=== PATIENT | female | born 1970 | race Caucasian/White ===

== ENCOUNTER 2022-08-18 15:58 | Outpatient (CLI) | payer BC, SELFPAY ==
--- NOTE | ~2022-08-18 | XR_ITS ---
XR_[id number]_CR DATE: 08/18/2022 16:35 INDICATION: Acute right neck pain for several days TECHNIQUE: AP, open-mouth, lateral and swimmer views COMPARISON: None FINDINGS: There is a reversal cervical curvature. There is dextroscoliosis of the cervical spine. C1 and C2 are normally aligned and the odontoid process is intact. There is mild anterolisthesis at C3-4 and C4-5. There is mild degenerative disc disease at C4-5, moderate degenerative disease at C5-C6 and severe de generative disc disease at C6-7. Uncovertebral joint spurring is noted in the mid and lower cervical spine. No fracture or dislocation or locked facet or prevertebral soft tissue swelling is detected. IMPRESSION: Levoscoliosis and reversal cervical curvature Mild anterolisthesis at C3-4 and C4-5 Multilevel degenerative disc disease of mid and lower cervical spine, greatest at C6-7 Reviewed, dictated and finalized at [facility]. Reviewed, dictated and finalized at [facility].
== END 2022-08-18 15:59 | disposition home or self-care (01) ==
PROVIDERS: PCP Family Medicine; Visit Provider Family Medicine
DX: M54.12 Radiculopathy, cervical region (principal); M41.82 Other forms of scoliosis, cervical region; M53.82 Other specified dorsopathies, cervical region; M43.02 Spondylolysis, cervical region; M50.323 Other cervical disc degeneration at C6-C7 level
CPT/HCPCS: 72040

== ENCOUNTER 2023-11-11 13:59 | Outpatient (CLI) | payer BC, SELFPAY ==
--- NOTE | ~2023-11-11 | MM_ITS ---
EXAMINATION: MM screening willian BI w tyrell HISTORY: Screening TECHNIQUE: Craniocaudal and mediolateral oblique 3-D tomosynthesis images were obtained and synthetic 2-D images were generated. CAD analysis was submitted and interpreted. COMPARISON: No prior mammogram is available for comparison at this institution. BREAST PARENCHYMAL COMPOSITION: Not dense: There are scattered areas of fibroglandular density.. FINDINGS: There is a mass in the right axillary region overlying the pectoralis muscle and MLO view. No mammographic evidence for malignancy in the left breast. IMPRESSION: 1. Right upper breast mass posteriorly overlying the pectoralis muscle on MLO view. 2. Additional mammographic views and possible breast ultrasound are recommended. BI-RADS Category 0: Incomplete: Needs additional imaging evaluation. Reviewed, dictated and finalized at [facility]. IMPRESSION: 1. Right upper breast mass posteriorly overlying the pectoralis muscle on MLO v iew. 2. Additional mammographic views and possible breast ultrasound are recommended . BI-RADS Category 0: Incomplete: Needs additional imaging evaluation.
== END 2023-11-11 14:00 | disposition home or self-care (01) ==
LOC: MICIMG 14:01
PROVIDERS: PCP Family Medicine; Visit Provider Family Medicine
DX: Z12.31 Encounter for screening mammogram for malignant neoplasm of breast (principal)
CPT/HCPCS: 77063; 77067

== ENCOUNTER 2023-12-01 08:06 | Outpatient (CLI) | payer BC, SELFPAY ==
--- NOTE | ~2023-12-01 | MMUS_ITS ---
EXAMINATION: MM diagnostic willian RT w tyrell, US breast RT limited HISTORY: Follow-up right breast mass TECHNIQUE: Additional 3-D tomosynthesis images of the right breast were performed and synthetic 2-D i mages were generated. CAD analysis was submitted and interpreted. High resolution Limited right breas t ultrasound was performed. COMPARISON: 11/11/2023 BREAST PARENCHYMAL COMPOSITION: Not dense: There are scattered areas of fibroglandular density. FINDINGS: MAMMOGRAPHIC FINDINGS: The focal mass in the upper outer quadrant of the right breast overlying the pectoralis muscle demons trates central lucency within, consistent with normal lymph node. ULTRASOUND: Limited right breast ultrasound: Normal heterogeneous echotexture without focal solid or cystic mass. IMPRESSION: 1. No evidence for malignancy in the right breast. 2. Routine yearly screening mammogram and regular clinical breast examination are recommended. BI-RADS Category 2: Benign finding(s). Reviewed, dictated and finalized at [facility]. IMPRESSION: 1. No evidence for malignancy in the right breast. 2. Routine yearly screening mammogram and regular clinical breast examination a re recommended. BI-RADS Category 2: Benign finding(s).
== END 2023-12-01 08:07 | disposition home or self-care (01) ==
LOC: MICIMG 08:07
PROVIDERS: PCP Family Medicine; Visit Provider Physician Assistant
DX: R92.8 Other abnormal and inconclusive findings on diagnostic imaging of breast (principal)
CPT/HCPCS: 76642; 77061; 77065; G0279

== ENCOUNTER 2024-11-13 10:44 | Outpatient (CLI) | payer BC, SELFPAY ==
--- NOTE | ~2024-11-13 | MM_ITS ---
EXAMINATION: MM screening willian BI w tyrell HISTORY: Screening TECHNIQUE: Craniocaudal and mediolateral oblique 3-D tomosynthesis images were obtained and synthetic 2-D images were generated. CAD analysis was submitted and interpreted. COMPARISON: 11/11/2023 BREAST PARENCHYMAL COMPOSITION: The breasts are almost entirely fatty. FINDINGS: There is no evidence of suspicious mass, calcification, or architectural distortion to suggest malignancy in either breast. IMPRESSION: 1. No mammographic evidence of malignancy. 2. Recommend routine screening mammography in one year. BI-RADS Category 1: Negative Reviewed, dictated and finalized at [facility].
== END 2024-11-13 10:45 | disposition home or self-care (01) ==
LOC: MICIMG 10:45
PROVIDERS: PCP Family Medicine; Visit Provider Family Medicine
DX: Z12.31 Encounter for screening mammogram for malignant neoplasm of breast (principal)
CPT/HCPCS: 77063; 77067